=== PATIENT | female | born 1960 | race Caucasian/White ===

== ENCOUNTER 2019-10-14 13:22 | Emergency (ER) | payer BC ==
[2019-10-14] MEDS ORDERED: Sodium Chloride 0.9% 1,000 ML IV SCH (14:15)
--- NOTE | 2019-10-14 15:01 | EDM.PDOC ---
ED HPI GENERAL MEDICAL PROBLEM - General Chief Complaint: General Stated Complaint: SENT FROM CLINIC Time Seen by Provider: 10/14/19 13:35 Source of Information: Reports: Patient History Limitations: Reports: No Limitations - History of Present Illness INITIAL COMMENTS - FREE TEXT/NARRATIVE: Patient presented to the ED from the clinic because of an elevated wbc. He was diagnosed with cholelithiasis with possible cholecystitis and started on Cipro but clinic doc wants her to be evaluated if she is septic or not because of low BP's i the clinic. Patient said he could have been dehydrated because she was working outside and was hot yesterday. Abdominal Pain Score (Numeric/FACES): 3 - Related Data Allergies Allergy/AdvReac Type Severity Reaction Status Date / Time No Known Allergies Allergy Verified 10/13/19 16:28 Home Meds: Home Meds Albuterol Sulfate [Albuterol Sulfate Hfa] 8.5 gm INH DAILY 10/14/19 [History] Ciprofloxacin [Ciprofloxacin HCl] 500 mg PO BID 10/14/19 [History] Gabapentin [Neurontin] 600 mg PO TID 10/14/19 [History] Lisinopril/Hydrochlorothiazide [Lisinopril-Hctz 20-25 mg Tab] 1 tab PO DAILY 10/14/19 [History] Montelukast Sodium 10 mg PO DAILY 10/14/19 [History] Triamcinolone Acetonide [Nasacort] 10.8 ml MAIKEL DAILY 10/14/19 [History] Past Medical History Psychiatric History: Reports: None Hematologic History: Reports: None Immunologic History: Reports: None Oncologic (Cancer) History: Reports: None Dermatologic History: Reports: None - Past Surgical History Head Surgeries/Procedures: Reports: None Musculoskeletal Surgical History: Reports: Carpal Tunnel, Shoulder Surgery Other Musculoskeletal Surgeries/Procedures:: scope and decompression right shoulder x2 two; trigger thump left; bilateral carpal tunnel Social & Family History - Tobacco Use Smoking Status *Q: Never Smoker ED ROS GENERAL - Review of Systems Review Of Systems: See Below Constitutional: Reports: No Symptoms HEENT: Reports: No Symptoms Respiratory: Reports: No Symptoms Cardiovascular: Reports: No Symptoms Endocrine: Reports: No Symptoms GI/Abdominal: Reports: No Symptoms : Reports: No Symptoms Musculoskeletal: Reports: No Symptoms Skin: Reports: No Symptoms Neurological: Reports: No Symptoms ED EXAM, GENERAL - Physical Exam Exam: See Below Exam Limited By: No Limitations General Appearance: Alert, No Apparent Distress Eye Exam: Bilateral Eye: PERRL Ears: Normal External Exam, Normal Canal Nose: Normal Inspection, Normal Mucosa Throat/Mouth: Normal Inspection, Normal Lips, Normal Teeth Head: Atraumatic, Normocephalic Neck: Normal Inspection, Supple, Full Range of Motion Respiratory/Chest: No Respiratory Distress, Lungs Clear, Normal Breath Sounds Cardiovascular: Normal Peripheral Pulses, Regular Rate, Rhythm, No Edema, No Gallop GI/Abdominal: Normal Bowel Sounds, Soft, Non-Tender, No Organomegaly Back Exam: Normal Inspection, Full Range of Motion Extremities: Normal Inspection, Normal Range of Motion, Non-Tender Neurological: Alert, Oriented, CN II-XII Intact, Normal Cognition, Normal Gait Psychiatric: Normal Affect, Normal Mood Course - Vital Signs Text/Narrative:: [id number] Lactic acid-normal NS 1 L bolus Last Recorded V/S: Last Vital Signs Temp 36.9 C 10/14/19 13:58 Pulse 88 10/14/19 15:19 Resp 16 10/14/19 15:18 BP 113/67 10/14/19 15:19 Pulse Ox 100 10/14/19 15:18 Orthostatic Blood Pressure [ 75/48 Standing] - Orders/Labs/Meds Labs: Laboratory Tests 10/14/19 10/14/19 Range/Units 13:44 13:44 WBC 19.0 H (4.5-12.0) X10-3/uL RBC 4.34 (3.23-5.20) x10(6)uL Hgb 13.5 (11.5-15.5) g/dL Hct 40.4 (30.0-51.3) % MCV 92.9 (80-96) fL MCH 31.1 (27.7-33.6) pg MCHC 33.5 (32.2-35.4) g/dL RDW 12.3 (11.5-15.5) % Plt Count 348 (125-369) X10(3)uL MPV 6.9 L (7.4-10.4) fL Add Manual Diff Yes Neutrophils % (Manual) 83 H (46-82) % Band Neutrophils % 2 (0-6) % Lymphocytes % (Manual) 11 L (13-37) % Monocytes % (Manual) 3 L (4-12) % Eosinophils % (Manual) 1 (0-5) % Lactic Acid 1.3 (0.4-2.0) mmol/L Meds: Medications Discontinued Medications Generic Name Dose Route Start Last Admin Trade Name Yesenia PRN Reason Stop Dose Admin Sodium Chloride 1,000 mls @ 999 mls/hr 10/14/19 14:15 10/14/19 14:25 Normal Saline IV 999 mls/hr ASDIRECTED ARIE Administration Departure - Departure Time of Disposition: 15:30 Disposition: Home, Self-Care 01 Condition: Good Clinical Impression: Dehydration, Cholelithiasis - Discharge Information Instructions: Cholelithiasis, [id number], Dehydration, Adult, [id number] Referrals: Julieth Feng [employer] [Primary Care Provider] - Forms: ED Department Discharge Additional Instructions: Please read discharge instructions on dehydration and cholelithiasis Increase oral fluids Continue ciprofloxacin Follow up with your doctor this coming week Sepsis Event Note (ED) - Evaluation Sepsis Screening Result: No Definite Risk - Focused Exam Vital Signs: Vital Signs Temp Pulse Resp BP BP Pulse Ox 10/14/19 15:19 88 113/67 10/14/19 15:18 87 16 94/54 L 100 10/14/19 14:01 81/48 L 10/14/19 13:58 36.9 C 94 16 90/46 L 100 10/14/19 13:30 100 18 119/58 L 100
== END 2019-10-14 15:34 | disposition home or self-care (01) ==
LOC: FB.ED 13:22
DX: E86.0 Dehydration (principal); K80.20 Calculus of gallbladder without cholecystitis without obstruction; Z79.899 Other long term (current) drug therapy
CPT/HCPCS: 36415; 83605; 85025; 96360; 99284; J7030; 99283

== ENCOUNTER 2019-10-31 06:30 | Day surgery (SDC) | payer BC ==
[~2019-10-31 06:30] MED LIST: Lactated Ringers 1,000 ML IV SCH; Sodium Chloride 0.9% 10 ML Syringe FLUSH PRN; ceFAZolin 2 GM in Premix Bag 1 BAG IV ONE
[2019-10-31] MEDS ORDERED: Lactated Ringers 1,000 ML IV ONE (06:31)
[2019-10-31] MEDS ORDERED: Midazolam 1 MG/ML 2 ML SDV IV ONE (06:31)
[2019-10-31] MEDS ORDERED: Glycopyrrolate 0.2 MG/ML 5 ML MDV IV ONE (06:31)
[2019-10-31] MEDS ORDERED: Neostigmine Methylsulfate 10 MG/10 ML MDV IVPUSH ONE (06:31)
[2019-10-31] MEDS ORDERED: Propofol 200 MG/20 ML SDV IV ONE (06:31)
[2019-10-31] MEDS ORDERED: Rocuronium 100 MG/10 ML MDV IV ONE (06:31)
[2019-10-31] MEDS ORDERED: Ondansetron 4 MG/2 ML SDV IVPUSH ONE (06:31)
[2019-10-31] MEDS ORDERED: Dexamethasone 4 MG/ML 5 ML MDV IVPUSH ONE (06:31)
[2019-10-31] MEDS ORDERED: fentaNYL 100 MCG/2 ML SDV IV ONE (06:31)
[2019-10-31] MEDS ORDERED: Ketorolac 30 MG/ML SDV IVPUSH ONE (06:31)
[2019-10-31] MEDS ORDERED: Scopolamine 1.5 MG Transdermal Patch TRDERM ONE (07:27)
--- NOTE | 2019-10-31 08:44 | PCM.PN ---
- General Info Date of Service: 10/31/19 - Review of Systems Systems Review Comment:: 59 y/o female with gallstones and recent attack of abdominal pain here for cholecystectomy. She is medically stable to proceed with no significant changes to her health status since her last exam. I have again reviewed the proposed procedure with the patient and her questions were answered. She agrees to proceed accepting risks. - Patient Data Vitals - Most Recent: Last Vital Signs Temp 98.2 F 10/31/19 07:17 Pulse 83 10/31/19 07:17 Resp 16 10/31/19 07:17 BP 132/88 10/31/19 07:17 Pulse Ox 97 10/31/19 07:17 Weight - Most Recent: 230 lb 11.4 oz Lab Results Last 24 Hours: Laboratory Results - last 24 hr 10/31/19 Range/Units 06:30 SARS Virus RNA (PCR) Negative (NEGATIVE) Med Orders - Current: Current Medications Lactated Ringer's (Ringers, Lactated) 1,000 mls @ 125 mls/hr IV ASDIRECTED ARIE Last Admin: 10/31/19 07:36 Dose: 125 mls/hr Documented by: Sodium Chloride (Saline Flush) 10 ml FLUSH ASDIRECTED PRN PRN Reason: Keep Vein Open Discontinued Medications Cefazolin Sodium/Dextrose 2 gm (/ Premix) 50 mls @ 100 mls/hr IV ONETIME ONE Stop: 10/31/19 06:59 Last Admin: 10/31/19 07:57 Dose: 100 mls/hr Documented by: Scopolamine (Transderm-Scop) 1.5 mg TRDERM ONETIME ONE Stop: 10/31/19 07:28 Last Admin: 10/31/19 07:55 Dose: 1.5 mg Documented by: Sepsis Event Note - Focused Exam Vital Signs: Vital Signs Temp Pulse Resp BP Pulse Ox 10/31/19 07:17 98.2 F 83 16 132/88 97 - Problem List Review Problem List Initiated/Reviewed/Updated: Yes - My Orders Last 24 Hours: My Active Orders 10/30/19 Dinner Nothing Per Oral Diet [DIET] 10/31/19 06:30 Patient Status [ADT] Routine RT Incentive Spirometry [RC] ASDIRECTED Verify Patient Consent Obtain [RC] ASDIRECTED Lactated Ringers [Ringers, Lactated] 1,000 ml IV ASDIRECTED Sodium Chloride 0.9% [Saline Flush] 10 ml FLUSH ASDIRECTED PRN Peripheral IV Insertion Adult [OM.PC] Routine Sequential Compression Device [OM.PC] Routine - Assessment Assessment:: Symptomatic gallstones - Plan Plan:: Cholecystectomy
[2019-10-31] MEDS ORDERED: Bupivacaine 0.5%/EPINEPHrine 1:200,000 50 ML MDV INJECT ONE (09:00)
--- NOTE | 2019-10-31 11:09 | PCM.OPNOTE ---
- General Post-Op/Procedure Note Date of Surgery/Procedure: 10/31/19 Operative Procedure(s): Laparoscopic Cholecystectomy Findings: Enlarged gallbladder with multiple stones Pre Op Diagnosis: Symptomatic Cholelithiasis Post-Op Diagnosis: Same Anesthesia Technique: General ET Tube Primary Surgeon: Eirc Mar Pathology: Gallbladder with stones EBL in mLs: 20 Complications: None Condition: Good
--- NOTE | 2019-10-31 12:05 | OR ---
DATE OF OPERATION: 10/31/2019 SURGEON: Eric Mar MD PREOPERATIVE DIAGNOSIS: Symptomatic cholelithiasis. POSTOPERATIVE DIAGNOSIS: Symptomatic cholelithiasis. OPERATION PERFORMED: Laparoscopic cholecystectomy. INDICATIONS FOR SURGERY: This 59-year-old female recently had an episode of severe upper abdominal pain. She was noted on workup to have an enlarged gallbladder with multiple stones and she comes for cholecystectomy. FINDINGS: The patient has a markedly enlarged gallbladder. It is filled with large and medium-sized faceted stones which are garcia in color. The bile is very thick and black in color. The gallbladder itself does not appear acutely inflamed. The adjacent liver and other intraabdominal organs appear normal as viewed laparoscopically. PROCEDURE IN DETAIL: The patient was taken to the operating room. She was given general endotracheal anesthesia, and the abdomen was sterilely prepped and draped. A supraumbilical stab wound incision was made. Through this, a Veress needle was inserted and pneumoperitoneum via this needle to a pressure of 15 mmHg was achieved with carbon dioxide. The Veress needle was then replaced with a 12 mm trocar into which the 5 mm variable angled laparoscopic camera was inserted. Under direct visualization, 5 mm trocars were placed in the subxiphoid midline and in 2 areas of the right abdomen. All trocar sites were infiltrated with Marcaine prior to incision. Intraabdominal and pelvic inspection were carried out and then attention was turned to the gallbladder. The gallbladder was markedly enlarged and dilated. An attempt was made to aspirate bile in an effort to decompress it, but the bile was too thick to aspirate. With careful positioning, the base of the gallbladder was able to be viewed and the fatty tissue overlying the cystic duct and cystic artery were carefully cleared. The cystic artery was then doubly clipped and divided. The triangle of Calot was cleared and the cystic duct was doubly clipped and divided near the gallbladder with great care being used to avoid injury to the common bile duct. The gallbladder was then dissected free from the undersurface of the liver using the cautery device. This was difficult and took an extended amount of time because of the shear size and weight of the gallbladder filled with stones, but eventually with persistent dissection was able to be accomplished. The gallbladder was then placed into an Endo retrieval bag, although because of the size of the gallbladder, it could not all fit into the bag itself. The skin and fascial incision were then both extended at the umbilical trocar site and the gallbladder was brought up to this level and the top of the gallbladder able to be exposed. It was opened. With persistence, enough of the stones were removed from the gallbladder extra-abdominally, so that the gallbladder could be removed from the abdominal cavity. With the Endo retrieval bag in place, no stones were spilled intra-abdominally. Reinspection of the gallbladder bed was then carried out and good hemostasis was assured with use of cautery. The operative region was copiously irrigated. Then, the pneumoperitoneum was evacuated and the trocars were removed. The fascial opening at the umbilical trocar site which had been extended was then closed with multiple interrupted 0 Vicryl sutures. The wounds were all irrigated with Betadine and saline solution. Skin incisions were approximated with interrupted 4-0 Prolene. Antibiotic ointment and sterile dressings held in position with paper tape were applied. The patient was then awakened and taken from the operating room in satisfactory condition. ESTIMATED BLOOD LOSS: 20 mL. COMPLICATIONS: None. PROGNOSIS: Good. /[id number] ALEXIS/FERNANDO
== END 2019-10-31 12:24 | disposition home or self-care (01) ==
LOC: FB.SDS 06:30
PROVIDERS: ATTEND Surgery
DX: K80.10 Calculus of gallbladder with chronic cholecystitis without obstruction (principal); Z01.812 Encounter for preprocedural laboratory examination; Z20.828 Contact with and (suspected) exposure to other viral communicable diseases; I10 Essential (primary) hypertension; E78.5 Hyperlipidemia, unspecified
CPT/HCPCS: 00790-QZ; 88304; 94150; A9270-GY; J0690; J1100; J1885; J2250; J2405; J2704; J2710; J3010; J3490; J7120; U0002